=== PATIENT | female | born 1940 | race Caucasian/White ===

== ENCOUNTER → 2016-07-15 | Outpatient (REF) | payer MEDICARE, OTHER | LOC: M LAB REF 12:57 | PROVIDERS: ATTEND Internal Medicine | DX: R31.9 Hematuria, unspecified (principal) ==

== ENCOUNTER → 2016-07-22 | Outpatient (REF) | payer MEDICARE, OTHER | LOC: M LAB REF 12:22 | PROVIDERS: ATTEND Internal Medicine | DX: N39.9 Disorder of urinary system, unspecified (principal) ==

== ENCOUNTER → 2016-11-04 | Outpatient (CLI) | payer MEDICARE, BC, OTHER ==
--- NOTE | 2016-11-04 11:33 | REP ---
Chest two views HISTORY: Cough Comparison: 01/30/2012 The lungs are clear. The heart is normal in size. The pulmonary vasculature is normal in appearance. Degenerative change is present in the thoracic spine. IMPRESSION: No acute disease. Signed by Smooth Walker MD 11/04/2016 11:24 A
== END ==
LOC: M SMT 11:03
PROVIDERS: ATTEND Internal Medicine Pulmonary Disease
DX: R05 Cough (principal)

== ENCOUNTER → 2017-01-20 | Outpatient (CLI) | payer MEDICARE, BC ==
--- NOTE | 2017-01-20 11:19 | REPMRS ---
Patient History The patient states she had a clinical breast exam in 01/12 Family history of colorectal cancer in paternal grandfather and ovarian cancer in maternal grandmother. Benign lumpectomy of the right breast. Digital Woman Screen Mammo: January 20, 2017 - Exam #: [id number] Bilateral CC and MLO view(s) were taken. Technologist: Madhavi Rivas, Technologist Prior study comparison: January 18, 2016, digital woman screen mammo performed at [facility]. October 12, 2014, digital woman screen mammo performed at [facility]. FINDINGS: There are scattered fibroglandular densities. There has been no change in the appearance of the mammogram from the prior studies. There is a mild amount of residual fibroglandular tissue which is fairly symmetric. There is no interval development of dominant mass, architectural distortion, or clustered microcalcification suggestive of malignancy. ASSESSMENT: BI-RADS/ACR category 1 mammogram. Negative. Recommendation Routine screening mammogram in 1 year (for women over age 40). This mammogram was interpreted with the aid of an FDA-approved computer-aided dectection system. Electronically Signed By: Chidi Gary MD 01/20/17 [id number]
== END ==
LOC: M WHC 09:08
PROVIDERS: ATTEND Internal Medicine
DX: Z12.31 Encounter for screening mammogram for malignant neoplasm of breast (principal); Z92.81 Personal history of extracorporeal membrane oxygenation (ECMO); Z80.41 Family history of malignant neoplasm of ovary; Z78.0 Asymptomatic menopausal state; Z01.419 Encounter for gynecological examination (general) (routine) without abnormal findings; Z28.21 Immunization not carried out because of patient refusal
CPT/HCPCS: G0101; G0202

== ENCOUNTER → 2018-01-21 | Outpatient (CLI) | payer MEDICARE, BC | LOC: M WHC 10:07 | DX: Z12.31 Encounter for screening mammogram for malignant neoplasm of breast (principal); Z92.89 Personal history of other medical treatment; Z80.41 Family history of malignant neoplasm of ovary | CPT/HCPCS: 77067 ==

== ENCOUNTER → 2019-01-21 | Outpatient (CLI) | payer MEDICARE, BC ==
--- NOTE | 2019-01-21 12:01 | REPMRS ---
Patient History The patient states she had a clinical breast exam in 12/2018. Family history of colorectal cancer in paternal grandfather, ovarian cancer in maternal grandmother, prostate cancer at age 50 or over in brother. Benign lumpectomy of the right breast. Digital Woman Screen Mammo: January 21, 2019 - Exam #: [id number] Bilateral CC and MLO view(s) were taken. Technologist: Jeaneth Stratton Technologist Prior study comparison: January 21, 2018, bilateral digital woman screen mammo performed at [facility]. January 20, 2017, digital woman screen mammo performed at [facility]. January 18, 2016, digital woman screen mammo performed at [facility]. FINDINGS: There are scattered fibroglandular densities. There has been no change in the appearance of the mammogram from the prior studies. There is a mild amount of scattered fibroglandular density which is fairly symmetric. There is no interval development of dominant mass, architectural distortion, or grouped microcalcification suggestive of malignancy. 3-D tomosynthesis shows no additional findings. Assessment: BI-RADS/ACR category 1 mammogram. Negative Mammogram. Recommendation Routine screening mammogram of both breasts in 1 year (for women over age 40). This patient's Lifetime Breast Cancer Risk is estimated at 2.0 %. This mammogram was interpreted with the aid of an FDA-approved computer-aided dectection system. Electronically Signed By: Taurus Henning MD 01/21/19 [id number]
== END ==
LOC: M WHC 10:20
PROVIDERS: ATTEND Nurse Practitioner Women's Health
DX: Z01.419 Encounter for gynecological examination (general) (routine) without abnormal findings (principal); Z12.31 Encounter for screening mammogram for malignant neoplasm of breast; Z80.42 Family history of malignant neoplasm of prostate; Z86.018 Personal history of other benign neoplasm
CPT/HCPCS: 77063; 77067; 81002; G0101

== ENCOUNTER → 2020-03-02 | Outpatient (CLI) | payer MEDICARE, BC ==
--- NOTE | 2020-03-02 11:24 | REPMRS ---
Patient History The patient states she has not had a clinical breast exam in over a year. Family history of colorectal cancer in paternal grandfather, ovarian cancer in maternal grandmother, prostate cancer at age 50 or over in brother. Benign lumpectomy of the right breast. No Hormone Replacement Therapy 3D TOMOSYNTHESIS WAS PERFORMED. [facility] lifetime risk for breast cancer is 1.7%. [facility]. Digital Woman Screen Mammo: March 02, 2020 - Exam #: [id number] Bilateral CC and MLO view(s) were taken. Technologist: Lilibeth Willis, Technologist Prior study comparison: January 21, 2019, bilateral digital woman screen mammo performed at [facility]. January 21, 2018, bilateral digital woman screen mammo performed at [facility]. FINDINGS: There are scattered fibroglandular densities. There has been no change in the appearance of the mammogram from the prior studies. There is a mild amount of residual fibroglandular tissue which is fairly symmetric. There is no interval development of dominant mass, architectural distortion, or clustered microcalcification suggestive of malignancy. Assessment: BI-RADS/ACR category 1 mammogram. Negative Mammogram. Recommendation Routine screening mammogram in 1 year (for women over age 40). This mammogram was interpreted with the aid of an FDA-approved computer-aided dectection system. Electronically Signed By: Chidi Gary MD 03/02/20 [id number]
--- NOTE | 2020-03-02 11:54 | DEXA ---
INDICATION: M85.80 [facility] DISRD OF BONE DENSITY AND STRUCTURE. COMPARISON: 01/18/2016, 08/30/2004. TECHNIQUE: Bone density was measured using dual-energy x-ray absorptiometry (DEXA). FINDINGS: AP SPINE L1-L4 BMD 1.748 g/cm2 Young Adult T-Score 4.5 Age Matched Z-Score 6.3. LT FEMUR, TOTAL BMD 1.299 g/cm2 Young Adult T-Score 2.3 Age Matched Z-Score 4.3. LT NECK BMD 1.143 g/cm2 Young Adult T-Score the 0.8 Age Matched Z-Score 2.9. RT FEMUR, TOTAL BMD 1.247 g/cm2 Young Adult T-Score 1.9 Age Matched Z-Score 3.9. RT NECK BMD 1.122 g/cm2 Young Adult T-Score 0.6 Age Matched Z-Score 2.8. IMPRESSION: There is normal bone density of the spine. There is normal bone density of the left hip. There is normal bone density of the right hip. The density of the spine has increased 4.4% since the initial exam on 08/30/2004. The density of the spine increase 2.8% since most recent exam on 01/18/2016. The density of the left hip has increased 6.7% since initial exam on 08/30/2004. The density of the left hip has increased 2.0% since most recent exam on 01/18/2016. The density of the right hip has increased 3.4% since the initial exam on 08/30/2004. The density of the right hip has increased 1.3% since the most recent exam on 01/18/2016. FOLLOW-UP: Recommendation for the next bone density exam: 2 years. <Electronically signed by Chidi Gary > 03/02/20 [id number]
== END ==
LOC: M WHC 10:11
PROVIDERS: ATTEND Internal Medicine
DX: Z12.31 Encounter for screening mammogram for malignant neoplasm of breast (principal); M85.80 Other specified disorders of bone density and structure, unspecified site; Z78.0 Asymptomatic menopausal state

== ENCOUNTER → 2021-03-20 | Outpatient (CLI) | payer MEDICARE, BC ==
--- NOTE | 2021-03-20 13:12 | REP ---
INDICATION: SCREEN MAMMO. COMPARISON: 03/02/2020 as well as multiple other prior exams. TECHNIQUE: MLO and CC views bilateral breasts with tomosynthesis. FINDINGS: There is symmetrical fibroglandular tissue which appears unchanged. There are increasing microcalcifications in the anterior aspect of the left breast, slightly laterally. No new mass is seen. There is no architectural distortion. The [facility] volumetric breast density pattern is B. IMPRESSION: BIRADS/ACR category 0, incomplete. Increasing microcalcifications anterolateral left breast. Recommend magnification views to further evaluate This patient's Tyrer-Cuzick lifetime breast cancer risk assessment score is 1.4%. This mammogram was interpreted with the aid of an FDA-approved computer-aided detection system. The patient states she had a clinical breast exam in over 1 year ago. The patient letter being requested is M0. RECOMMENDATION: Recommend magnification views left breast as discussed above. <Electronically signed by Chidi Gary > 03/20/21 [id number]
== END ==
LOC: M WHC 11:27
PROVIDERS: ATTEND Internal Medicine
DX: Z12.31 Encounter for screening mammogram for malignant neoplasm of breast (principal); R92.8 Other abnormal and inconclusive findings on diagnostic imaging of breast

== ENCOUNTER → 2021-04-12 | Outpatient (CLI) | payer MEDICARE, BC ==
--- NOTE | 2021-04-12 13:42 | REP ---
INDICATION: LEFT BREAST ADD VIEWS. COMPARISON: Screening mammogram, 03/20/2021. TECHNIQUE: Spot compression magnification of the left breast in the CC and MLO orientations, supplemented by true lateral view. FINDINGS: The group of calcifications in the retroareolar area of the left breast appear probably benign. IMPRESSION: BIRADS/ACR : Category 3: Probably benign. The patient letter being requested is M3. RECOMMENDATION: Six-month follow-up mammographic evaluation of the left breast, to include focal compression magnification in the CC and MLO orientations. <Electronically signed by Randal Fraser > 04/12/21 [id number]
== END ==
LOC: M WHC 12:49
PROVIDERS: ATTEND Internal Medicine
DX: R92.2 Inconclusive mammogram (principal); N63.25 Unspecified lump in the left breast, overlapping quadrants
CPT/HCPCS: 77065; G0279

== ENCOUNTER → 2024-05-20 | Outpatient (REF) | payer MEDICARE, BC ==
[2024-05-20 14:14] LABS: RSV AMPLIFICATION NEGATIVE (NEGATIVE)
== END ==
LOC: M LAB REF 13:09
PROVIDERS: ATTEND Internal Medicine
DX: R05.9 Cough, unspecified (principal)